=== PATIENT | female | born 1965 | race American Indian/Alaskan Native ===

== ENCOUNTER 2018-07-29 13:42 | Outpatient (CLI) | payer OTHER | END 2018-07-29 13:43 | disposition home or self-care (01) | LOC: PF 13:42 | PROVIDERS: ATTEND Internal Medicine | DX: J45.909 Unspecified asthma, uncomplicated (principal); K21.9 Gastro-esophageal reflux disease without esophagitis; I10 Essential (primary) hypertension; E11.9 Type 2 diabetes mellitus without complications; Z88.2 Allergy status to sulfonamides | CPT/HCPCS: 94010 ==

== ENCOUNTER 2020-07-11 11:25 | Emergency (ER) | payer SELFPAY ==
[2020-07-11 11:47] VITALS: BP 171/98
--- NOTE | 2020-07-11 11:55 | Emergency Department Report ---
ED ENT HPI - General Chief complaint: Earache Stated complaint: RT EAR PAIN Time Seen by Provider: 07/11/20 11:48 Source: patient Mode of arrival: Ambulatory Limitations: No Limitations - History of Present Illness Initial comments: This is a 55-year-old female nontoxic well in appearance with no signs of distress presents to the ED with complaint of right earache. Stated has some drainage as well. Denies any trauma or injuries. Patient denies any hearing loss. Denies any mastoid tenderness. Denies any fever, chills, headache, nausea, vomiting, chest pain or SOB. Denies any other complaints. Denies any allergies. MD complaint: ear pain -: days(s) Location: R ear Severity: mild Severity scale (0 -10): 3 Quality: aching Consistency: constant Improves with: none Worsens with: none Associated Symptoms: discharge from ear. denies: fever, cough, gum swelling, toothache, pain with swallowing, sore throat, tinnitus, hearing loss, rhinorrhea - Related Data Previous Rx's Medication Instructions Recorded Last Taken Type Amoxicillin [Amoxicillin TAB] 875 mg PO BID #20 tablet 07/11/20 Unknown Rx Polymyxin B Sulf/Trimethoprim 3 drops OD TID #1 drops 07/11/20 Unknown Rx [Polytrim Eye Drops] Allergies Allergy/AdvReac Type Severity Reaction Status Date / Time Sulfa (Sulfonamide Allergy Swelling Unverified 07/29/18 13:44 Antibiotics) ED Dental HPI - General Chief complaint: Earache Stated complaint: RT EAR PAIN Time Seen by Provider: 07/11/20 11:48 Source: patient Mode of arrival: Ambulatory Limitations: No Limitations - Related Data Previous Rx's Medication Instructions Recorded Last Taken Type Amoxicillin [Amoxicillin TAB] 875 mg PO BID #20 tablet 07/11/20 Unknown Rx Polymyxin B Sulf/Trimethoprim 3 drops OD TID #1 drops 07/11/20 Unknown Rx [Polytrim Eye Drops] Allergies Allergy/AdvReac Type Severity Reaction Status Date / Time Sulfa (Sulfonamide Allergy Swelling Unverified 07/29/18 13:44 Antibiotics) ED Review of Systems ROS: Stated complaint: RT EAR PAIN Other details as noted in HPI Comment: All other systems reviewed and negative Constitutional: denies: chills, fever Eyes: denies: eye pain, eye discharge, vision change ENT: ear pain. denies: throat pain, dental pain, hearing loss, epistaxis, congestion Respiratory: denies: cough, shortness of breath, wheezing Cardiovascular: denies: chest pain, palpitations Endocrine: no symptoms reported Gastrointestinal: denies: abdominal pain, nausea, diarrhea Genitourinary: denies: urgency, dysuria, discharge Musculoskeletal: denies: back pain, joint swelling, arthralgia Skin: denies: rash, lesions Neurological: denies: headache, weakness, paresthesias Psychiatric: denies: anxiety, depression Hematological/Lymphatic: denies: easy bleeding, easy bruising ED Past Medical Hx - Past Medical History Previous Medical History?: Yes Hx Hypertension: Yes Hx Diabetes: Yes - Medications Home Medications: Home Medications Medication Instructions Recorded Confirmed Last Taken Type Amoxicillin [Amoxicillin TAB] 875 mg PO BID #20 tablet 07/11/20 Unknown Rx Polymyxin B Sulf/Trimethoprim 3 drops OD TID #1 drops 07/11/20 Unknown Rx [Polytrim Eye Drops] ED Physical Exam - General Limitations: No Limitations General appearance: alert, in no apparent distress - Head Head exam: Present: atraumatic, normocephalic - Eye Eye exam: Present: normal appearance - Expanded ENT Exam Expanded Ear exam: Present: normal external inspection TM/Canal exam: Erythema: Right TM, Bulging: Right TM, Canal Discharge: Right TM - Neck Neck exam: Present: normal inspection, full ROM - Respiratory Respiratory exam: Absent: respiratory distress - Cardiovascular Cardiovascular Exam: Present: regular rate - Extremities Exam Extremities exam: Present: normal inspection, full ROM - Back Exam Back exam: Present: normal inspection, full ROM - Neurological Exam Neurological exam: Present: alert, oriented X3, normal gait - Psychiatric Psychiatric exam: Present: normal affect, normal mood - Skin Skin exam: Present: warm, dry, intact, normal color. Absent: rash - Other Other exam information: Positive tragus tenderness. ED Course Vital Signs 07/11/20 11:46 Temperature 98.8 F Pulse Rate 94 H Respiratory 16 Rate Blood Pressure 171/98 [Right] O2 Sat by Pulse 99 Oximetry - Reevaluation(s) Reevaluation #1: 07/11/20 11:56 Patient is speaking in full sentences with no signs of distress noted. ED Medical Decision Making - Medical Decision Making Patient was instructed to Follow-up with a primary care doctor in 3-5 days or if symptoms worsen and continue return to emergency room as soon as possible. At time of discharge, the patient does not seem toxic or ill in appearance. No acute signs of distress noted. Patient agrees to discharge treatment plan of care. No further questions noted by the patient. Critical care attestation.: If time is entered above; I have spent that time in minutes in the direct care of this critically ill patient, excluding procedure time. ED Disposition Clinical Impression: Right otitis media Qualifiers: Otitis media type: unspecified Qualified Code(s): H66.91 - Otitis media, unspecified, right ear Right otitis externa Qualifiers: Otitis externa type: unspecified type Chronicity: acute Qualified Code(s): H60.501 - Unspecified acute noninfective otitis externa, right ear Disposition: TO HOME OR SELFCARE Is pt being admited?: No Does the pt Need Aspirin: No Condition: Stable Instructions: Ear Drops, Adult, Otitis Externa, [id number], Otitis Media, Adult Additional Instructions: Follow-up with a primary care doctor in 3-5 days or if symptoms worsen and continue return to emergency room as soon as possible. Prescriptions: Amoxicillin [Amoxicillin TAB] 875 mg PO BID #20 tablet Polymyxin B Sulf/Trimethoprim [Polytrim Eye Drops] 3 drops OD TID #1 drops Referrals: PRIMARY CAREMD [Referring] - 3-5 Days CHRISTINA ROSADO MD [Staff Physician] - 3-5 Days Forms: Work/School Release Form(ED) Time of Disposition: 12:01
== END 2020-07-11 12:50 | disposition home or self-care (01) ==
LOC: ED 11:25
DX: H66.91 Otitis media, unspecified, right ear (principal); H60.91 Unspecified otitis externa, right ear; I10 Essential (primary) hypertension; E11.9 Type 2 diabetes mellitus without complications; Z79.1 Long term (current) use of non-steroidal anti-inflammatories (NSAID); Z79.899 Other long term (current) drug therapy; Z88.2 Allergy status to sulfonamides
CPT/HCPCS: 99282

== ENCOUNTER 2020-08-03 11:25 | Emergency (ER) | payer SELFPAY ==
[2020-08-03 11:48] VITALS: BP 183/97
--- NOTE | 2020-08-03 11:53 | Event Note ---
ED Screening Note ED Screening Note: RECENT SINUS INFECTION NOW CHILLS AND COUGH This initial assessment/diagnostic orders/clinical plan/treatment(s) is/are subject to change based on patients health status, clinical progression and re- assessment by fellow clinical providers in the ED. Further treatment and workup at subsequent clinical providers discretion. Patient/guardian urged not to elope from the ED as their condition may be serious if not clinically assessed and managed. Initial orders include: CHACORTA HARRISON PNA
--- NOTE | 2020-08-03 12:50 | XRay Report ---
XR chest routine 2V INDICATION / CLINICAL INFORMATION: SOB COMPARISON: None available. FINDINGS: SUPPORT DEVICES: None. HEART / MEDIASTINUM: No significant abnormality. LUNGS / PLEURA: Patchy bilateral airspace disease. Costophrenic sulci are sharp. No pneumothorax. ADDITIONAL FINDINGS: No significant additional findings. IMPRESSION: 1. Bilateral airspace disease concerning for infection. Covid is a consideration. Signer Name: Bradley Chong MD Signed: 08/03/2020 12:42 PM Workstation Name: [id number]
--- NOTE | 2020-08-03 13:18 | Emergency Department Report ---
- General Chief Complaint: Upper Respiratory Infection Stated Complaint: CANNOT TASTE, FEVER, SERENITY Time Seen by Provider: 08/03/20 11:52 Source: patient Mode of arrival: Ambulatory Limitations: No Limitations - History of Present Illness Initial Comments: 55-year-old female with history of asthma, hypertension, diabetes, presents to the ED with URI symptoms. Patient states "I just can't break this fever." Patient reports she has been having fever, chills, cough, headache, loss of taste. Patient also reports some mild breathlessness. Patient states she has not been tested for COVID-19. Patient states she has been using her nebulizer machine at home for the wheezing. MD Complaint: fever, cough -: days(s) (3) Severity: mild Consistency: constant Improves With: nothing Worsens With: nothing Associated Symptoms: fever, chills, headache, cough, shortness of breath Treatments Prior to Arrival: Acetaminophen - Related Data Previous Rx's Medication Instructions Recorded Last Taken Type Amoxicillin [Amoxicillin TAB] 875 mg PO BID #20 tablet 07/11/20 Unknown Rx Polymyxin B Sulf/Trimethoprim 3 drops OD TID #1 drops 07/11/20 Unknown Rx [Polytrim Eye Drops] predniSONE [Deltasone] 50 mg PO QDAY #5 tab 08/03/20 Unknown Rx Allergies Allergy/AdvReac Type Severity Reaction Status Date / Time Sulfa (Sulfonamide Allergy Swelling Unverified 07/29/18 13:44 Antibiotics) ED Review of Systems ROS: Stated complaint: CANNOT TASTE, FEVER, SERENITY Other details as noted in HPI Comment: All other systems reviewed and negative Constitutional: chills, fever ENT: other (Loss of taste reported) Respiratory: cough, shortness of breath, wheezing ED Past Medical Hx - Past Medical History Previous Medical History?: Yes Hx Hypertension: Yes Hx Diabetes: Yes Hx Asthma: Yes - Social History Smoking Status: Never Smoker Substance Use Type: None - Medications Home Medications: Home Medications Medication Instructions Recorded Confirmed Last Taken Type Amoxicillin [Amoxicillin TAB] 875 mg PO BID #20 tablet 07/11/20 Unknown Rx Polymyxin B Sulf/Trimethoprim 3 drops OD TID #1 drops 07/11/20 Unknown Rx [Polytrim Eye Drops] predniSONE [Deltasone] 50 mg PO QDAY #5 tab 08/03/20 Unknown Rx ED Physical Exam - General Limitations: No Limitations General appearance: alert, in no apparent distress - Head Head exam: Present: atraumatic, normocephalic - Eye Eye exam: Present: normal appearance, EOMI - ENT ENT exam: Present: mucous membranes moist - Neck Neck exam: Present: normal inspection - Respiratory Respiratory exam: Present: normal lung sounds bilaterally. Absent: respiratory distress - Cardiovascular Cardiovascular Exam: Present: regular rate, normal rhythm - GI/Abdominal GI/Abdominal exam: Absent: distended - Extremities Exam Extremities exam: Present: normal inspection - Neurological Exam Neurological exam: Present: alert, oriented X3 - Psychiatric Psychiatric exam: Present: normal affect, normal mood - Skin Skin exam: Present: warm, dry, intact, normal color ED Course Vital Signs 08/03/20 08/03/20 11:44 14:35 Temperature 100 F H 100 F H Pulse Rate 96 H 96 H Respiratory 20 20 Rate Blood Pressure 183/97 Blood Pressure 183/97 [Left] O2 Sat by Pulse 99 Oximetry - Reevaluation(s) Reevaluation #1: 08/03/20 13:11 O2 sat remained at 99% on room air with ambulation ED Medical Decision Making - Radiology Data Radiology results: report reviewed, image reviewed - Medical Decision Making 55-year-old female presents to ED with fever fever, cough, shortness of breath. COVID-19 suspected, patient has not yet been tested. Chest x-ray shows evidence of pneumonia, however patient's O2 sats are normal. She is in no respiratory distress. Ambulatory O2 sats remained at 99% on room air. Patient will be discharged home at this time with instructions to purchase a pulse oximeter. I also discussed prone positioning with patient. Patient reports she has been using her nebulizer at home due to some wheezing, so I will give prescription for prednisone. Return precautions given. - Differential Diagnosis COVID-19, pneumonia, asthma Critical care attestation.: If time is entered above; I have spent that time in minutes in the direct care of this critically ill patient, excluding procedure time. ED Disposition Clinical Impression: Suspected COVID-19 virus infection, Pneumonia Disposition: TO HOME OR SELFCARE Is pt being admited?: No Condition: Stable Instructions: COVID-19, Prevent the Spread of COVID-19 if You Are Sick - CDC, Bacterial Pneumonia (ED) Additional Instructions: Your chest x-ray shows some evidence of pneumonia, however, your oxygen level is normal today. It is possible that you may have COVID-19. It is recommended that you obtain outpatient COVID-19 testing. Whenever you are laying down, lay on your stomach as much as possible. This will help your lungs and your oxygen level. It is recommended that you buy a pulse oximeter so that you can keep track of your oxygen level. If your oxygen drops below 90%, return to the ER. Prescriptions: predniSONE [Deltasone] 50 mg PO QDAY #5 tab Referrals: PRIMARY CARE, [Primary Care Provider] - 3-5 Days [facility] [Provider Group] - 3-5 Days Time of Disposition: 13:35
== END 2020-08-03 14:36 | disposition home or self-care (01) ==
LOC: ED 11:25
DX: J18.9 Pneumonia, unspecified organism (principal); Z20.828 Contact with and (suspected) exposure to other viral communicable diseases; I10 Essential (primary) hypertension; E11.9 Type 2 diabetes mellitus without complications; J45.909 Unspecified asthma, uncomplicated; Z79.899 Other long term (current) drug therapy; Z88.2 Allergy status to sulfonamides
CPT/HCPCS: 71046; 99283